=== PATIENT | male | born 1990 | race Caucasian/White ===

== ENCOUNTER 2018-03-20 18:43 | Emergency (ER) | payer MEDICAID ==
[~2018-03-20] VITALS: Ht 193 cm; Wt 84.0 kg
[~2018-03-20 18:43] MED LIST: ALPR0.25 PO; ALPR0.254 PO; HYDR-3237 PO; LAMO200T3 PO; LEVE500T53 PO
[2018-03-20] MEDS ORDERED: LAMO5TB.6 PO (18:55)
[2018-03-20] MEDS ORDERED: DIAZ10TA PO (18:56)
[2018-03-20] MEDS ORDERED: CHLORDIAZEPOXIDE 10 MG CAPSULE PO PRN (19:00)
[2018-03-20] MEDS ORDERED: KETOROLAC 30 MG/1 ML IVPush ONE (19:00)
[2018-03-20] MEDS ORDERED: SODIUM CHLORIDE FLUSH 10ML SYR IVF ONE (19:00)
[2018-03-20] MEDS ORDERED: SODIUM CHLORIDE 0.9% 1,000ML IVBOLUS ONE (19:00)
[2018-03-20] MEDS ORDERED: KETOROLAC 30 MG/1 ML ONE (19:02)
[2018-03-20] MEDS ORDERED: CHLORDIAZEPOXIDE 10 MG CAPSULE ONE (19:14)
[2018-03-20 19:25] LABS: ALANINE AMINOTRANSFERASE 21 U/L (12-78); ALBUMIN 3.9 g/dL (3.4-5.0); ANION GAP 7 mmol/L (5-15); CALCIUM 7.9 mg/dL (8.5-10.1); CHLORIDE 107 mmol/L (98-107); CREATININE 0.86 mg/dL (0.7-1.3)
[2018-03-20 19:27] LABS: ALKALINE PHOSPHATASE 78 U/L (45-117); BILIRUBIN,TOTAL 0.3 mg/dL (0.2-1.0); TOTAL PROTEIN 7.3 g/dL (6.4-8.2)
[2018-03-20 19:40] LABS: BASOPHILS # (AUTO) 0.02 x10^3/uL (0-0.1); BASOPHILS % (AUTO) 0 % (0-1); EOSINOPHILS # (AUTO) 0.06 x10^3/uL (0-0.4); EOSINOPHILS % (AUTO) 1 % (1-7); LYMPHOCYTES # (AUTO) 1.23 x10^3/uL (1-3.4); LYMPHOCYTES % (AUTO) 14 % (22-44); MD NO; MEAN CORPUSCULAR HEMOGLOBIN 29.5 pg (27.5-34.5); MEAN CORPUSCULAR HGB CONC 33.8 g/dL (33.2-36.2); MEAN CORPUSCULAR VOLUME 87.4 fL (81-97); MEAN PLATELET VOLUME 8.6 fL (7.4-10.4); MONOCYTES % (AUTO) 4 % (2-9); NEUTROPHILS # (AUTO) 7.06 x10^3/uL (1.8-6.8); NEUTROPHILS % (AUTO) 81 % (42-75); PLATELET COUNT 241 x10^3/uL (130-400); RED BLOOD COUNT 4.57 x10^6/uL (4.38-5.82); RED CELL DISTRIBUTION WIDTH 14.2 % (9.4-14.8)
[2018-03-20 22:03] VITALS: BP 113/65
== END 2018-03-20 22:06 | disposition home or self-care (01) ==
LOC: ED 21:45
DX: G40.409 Other generalized epilepsy and epileptic syndromes, not intractable, without status epilepticus (principal); M54.2 Cervicalgia
CPT/HCPCS: 36415; 70450; 72125; 80053; 85025; 96374; 99285; J1885; J7030